=== PATIENT | male | born 1990 | race African-American/Black ===

== ENCOUNTER 2022-12-05 21:19 | Emergency (ER) | payer BC ==
[2022-12-05] MEDS ORDERED: Fluconazole 100 MG TAB PO SCH (23:00)
[2022-12-05 23:24] LABS: Bilirubin Neg (Negative); Blood, Urine 25 (Negative); Clarity Slightly Cloudy (Clear); Glucose, Urine (Dipstick) >=1000 mg/dL (Negative); Ketone, Urine 50 mg/dL (Negative); Leukocyte 500 (Negative); Nitrite Negative (Negative); Protein, Urine (Dipstick) 30 mg/dl (Neg-Trace); Specific Gravity, Urine 1.025 (1.005-1.030)
[2022-12-05 23:39] LABS: RBC/HPF 0-3 HPF (0-3)
[2022-12-05 23:40] LABS: Bacteria/HPF 1+ HPF (None Seen); Squamous Epithelial 0-3 HPF (0-3)
[2022-12-06] MEDS ORDERED: cefTRIAXone (ROCEPHIN) 1 GM VIAL ONE (00:13)
[2022-12-06] MEDS ORDERED: Lidocaine 1% MPF 2 ML VIAL ONE (00:13)
[2022-12-06 16:34] LABS: Chlam.trachomatis by PCR,Urine Not Detected (NotDetected); GC N.gonorrhoeae PCR,UrineVOID Not Detected (NotDetected)
== END 2022-12-06 00:21 | disposition home or self-care (01) ==
LOC: CSHERS 21:19
DX: N47.6 Balanoposthitis (principal); N39.0 Urinary tract infection, site not specified
CPT/HCPCS: 81003; 81015; 87077; 87086; 87491; 87591; 96372; 99284; J0696